=== PATIENT | male | born 2000 | race Caucasian/White ===

== ENCOUNTER 2021-10-09 13:29 | Emergency (ER) | payer OTHER, BC, SELFPAY ==
[2021-10-09 13:30] VITALS: BP 144/83; PULSE 104; RESP 16; TEMP 37; O2SAT 99; BMI 26.6
--- NOTE | 2021-10-09 14:28 | RAD_ITS ---
STUDY: X-RAY - RIGHT HAND REASON FOR EXAM: Male, 21 years old. Injury to the third digit. TECHNIQUE: 3 view(s) of the hand. COMPARISON: None. FINDINGS: Normal radiocarpal articulation. Normal distal radioulnar joint. Normal visualized carpal bones. Normal carpal articulations Normal carpometacarpal articulation of the thumb. Normal second through fifth carpometacarpal joints. Normal metacarpi. Normal metacarpophalangeal joint of the thumb. Normal interphalangeal joint of the thumb. Normal proximal and distal phalanges of the thumb. Normal metacarpophalangeal joints of the second through fifth fingers. Normal proximal and distal interphalangeal joints of the second through fifth fingers. Normal phalanges of the second through fifth fingers. The soft tissue structures are unremarkable. RAD/Hand Min 3 Views IMPRESSION: Normal x-ray examination of the hand. Electronically Signed: Serafin Reese MD at 15:00 EDT ,
--- NOTE | 2021-10-09 15:21 | EX.ED.UPPERE ---
HPI History of Present Illness HPI Narrative: Patient presents with injury to his right hand that occurred today. Patient got hit caught in the sliding door of his work van. Patient describes the pain is stiffness. Patient states pain is worse with movement. Patient denies any paresthesias or weakness. Patient states his last tetanus was up-to-date. Patient denies any other injuries. Chief Complaint: Upper Extremity Injury Informant: patient Occured/Mechanism Mechanism/Context: Yes crush Onset/Context/Timing Onset: Today Context: Sudden Onset Timing: Continuous Quality of Pain: - (Stiffness) Location: Right third and fourth fingers Worsened by: Movement Relieved by: Nothing Associated Symptoms Associated Symptoms: Negative for Parasthesia, Weakness and Loss of Funtion Narrative Tetanus Immunization: <5 years PFSH PFSH Medical History Asthma Home Medications cetirizine [Zyrtec] 10 mg PO DAILY 10/09/21 [History Last Taken Unknown] montelukast [Singulair] 10 mg PO DAILY 10/09/21 [History Last Taken Unknown] Allergy/AdvReac Type Severity Reaction Status Date / Time latex Allergy Rash Verified 10/09/21 13:30 Surgical History no surgical history no surgical history Social History Smoking Status: Never smoker ROS ROS ED Constitutional Constitutional ED: Denies chills or fever(s) Eyes Eyes: Denies blurry vision or change in vision ENT ENT ED: Denies rhinorrhea or sore throat Cardiovascular Cardiovascular: Denies chest pain or palpitations Respiratory/Chest Respiratory/Chest: Denies cough or dyspnea Gastrointestinal Gastrointestinal: Denies nausea or vomiting Genitourinary Genitourinary ED: Denies dysuria or hematuria Musculoskeletal Musculoskeletal: Denies back pain or neck pain Integumentary Denies abscess or rash Neurologic Neurologic: Denies headache(s) or weakness Allergic/Immunologic Allergic/Immunologic ED: Denies mouth swelling or urticaria EXAM Physical Exam Const Vital Signs: 10/09/21 13:30 Temperature 98.6 F Temperature Source Temporal Pulse Rate 104 H Respiratory Rate 16 Blood Pressure 144/83 H Blood Pressure Mean 103 Pulse Ox 99 Oxygen Delivery Method Room Air Positive well nourished and well developed General Appearance ED: well developed and NAD HEENT Reports moist mucous membranes Neck full ROM and supple Extremity Extremity Narrative: There is tenderness mild mild edema and ecchymosis over the distal phalanges of the right third and fourth fingers. There is no obvious deformity. There is good range of motion. There is a superficial abrasion over the dorsal aspect of the distal phalanx of the right third finger. There is a superficial 1.5 cm laceration over the palmar aspect of the distal phalanx of the fourth finger near the DIP joint. There is no active bleeding. There is minimal gapping of the wound margins. There are no foreign bodies noted. Sensation was intact to light touch in all digits. Capillary refill was less than 2 seconds in all digits. Neuro oriented x3, CN's II-XII intact bilaterally, moves all extremities, no focal motor deficits and no sensory deficits noted Sensorium / Orientation: alert Motor Exam: strength 5/5 throughout Psych mental status grossly normal MDM MDM MDM Narrative Medical decision making narrative: X-rays of the right hand were obtained. There are 3 views. On my interpretation, there is no acute fracture or dislocation. There is no soft tissue swelling. There are no foreign bodies noted. Radiologist also interpreted the x-rays and agrees. The right third and fourth fingers were cleaned. The laceration on the volar aspect of the fourth finger was closed with Steri-Strips. Patient tolerated the procedure well. The third finger was placed in aluminum foam splint. Patient was instructed to [facility]-up with [facility] or his primary care physician in 5 to 7 days. Patient understood and was agreeable with the plan. All questions were answered. Radiography Diagnostic Testing: Clinical Impression(s) from Imaging Studies Hand X-Ray 10/09/21 14:28 IMPRESSION: Normal x-ray examination of the hand. Electronically Signed: Serafin Reese MD at 15:00 EDT , Procedures Lacerations Right ring finger: Length: 1.5 cm Depth: Skin Shape: Linear Prep: Sterile Conditions and Shure-Clens Comment: Steri-Strips were applied. Discharge Plan Triage Chief Complaint: Upper Extremity Injury ED Provider: Clinton Castellon Dx/Rx/DC Orders Clinical Impression: Other sprain of right middle finger, initial encounter, Laceration of right ring finger Instructions: ED Laceration, Hand: All Closures, ED Finger Sprain Prescriptions: No Action cetirizine [Zyrtec] 10 mg Tablet 10 mg PO DAILY RF: 0 montelukast [Singulair] 10 mg Tablet 10 mg PO DAILY RF: 0 Primary Care Provider: Manuel Pink Referrals: Manuel Pink MD [Primary Care Provider] - 5-7 Days [facility] [NON-STAFF] - 5-7 Days Disposition Disposition: Home, Self Care
[2021-10-09 15:41] VITALS: RESP 18
== END 2021-10-09 15:43 | disposition home or self-care (01) ==
PROVIDERS: Emergency Provider Emergency Medicine; PCP Family Medicine; Visit Provider Emergency Medicine
DX: S61.214A Laceration without foreign body of right ring finger without damage to nail, initial encounter (principal); S63.612A Unspecified sprain of right middle finger, initial encounter; W23.0XXA Caught, crushed, jammed, or pinched between moving objects, initial encounter; Y92.818 Other transport vehicle as the place of occurrence of the external cause; J45.909 Unspecified asthma, uncomplicated
CPT/HCPCS: 73130; 99283

== ENCOUNTER 2022-01-21 07:30 | Outpatient (RCR) | payer OTHER, BC, SELFPAY ==
--- NOTE | 2021-12-10 08:15 | HP.OTEVAL_ITS ---
Patient's Visit Information ROMEO BOJORQUEZ is a 21 year old M, referred to Occupational Therapy by IKE Allen, with a diagnosis of right MF sprain. Date of Evaluation: 12/10/21 Occupational Therapist: Mary Kaiser, OTR/Hemant, CHT - Subjective This 21 year old male was seen for OT eval with dx of right MF sprain- pt states he closed his van door on his finger ( it latched shut) pt went to ER as it was bleeding- pt states he was placed in a splint to keep the tip of his finger straight- DOI was October 09. Pt states he removed the splint November 25- -pt states he is doing good with his finger and not sure he needs much therapy or has time with his busy schedule. 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 Due to the DIP flexed position therapists advised to sleep in the splint he was [facility]- pt demo understanding and use and agree to POC. Rehabilitation Potential: Good - Anticipated Interventions A/AAROM/PROM, Orthoses, Home Program - Visit Plan Frequency: Every Other Week Duration: 2 Months TEXT: Thank you for the opportunity to evaluate your patient. For Medicare and Medicare HMO plans, please review the plan of care and approve it. It will need to be FAXED BACK to us at [phone] for Medicare purposes. Please let me know if there are questions or concerns regarding this plan of care. Physician Signature: Date:
--- NOTE | 2022-01-21 07:40 | OTREVAL_ITS ---
IKE Allen, It has been my pleasure to treat ROMEO BOJORQUEZ over the last 3 visits for right MF sprain. Please see the progress note below for an update on the occupational therapy plan of care! Subjective: pt arrives with oval 8 orthosis on- denies pain. 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 pt demo with a +10* on right MF PIP this is eq. to left hand. pt will continue to use oval 8 splint to limit aggressive pip ext- for next few weeks- will wean out of it as able-. can go without night splint- positioning Pip in N Plan Plan: pt will cont with HEP of weaning out of orthosis as able-. return to normal activity. if PIP hyper ext increases return to dr. otherwise pt doing great Goals - Goals Patient Goals: Improve Fine Motor Skills Goal:: pt will demo a reduction of MF PIP hyper-extension indicating improvement in the tendon pull of right MF by d.c Goal:: pt will demo a increase in DIP ext lag by 10* to increase ease of pts ADLs and IADls by d.c Anticipated Interventions Anticipated Interventions: A/AAROM/PROM, Orthoses, Home Program Please do not hesitate to contact me at [phone] by phone or if you have questions or concerns regarding this new plan of care! Sincerely, Mary Kaiser, OTR/L, CHT
--- NOTE | 2022-04-06 16:59 | HP.OTDCSUM_ITS ---
It has been my pleasure to treat ROMEO BOJORQUEZ under orders from IKE Allen, for the diagnosis of right MF sprain for a total of 3 visit(s). Please see the following information for a summary of their discharge status. 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 pt demo with a +10* on right MF PIP this is eq. to left hand. pt will continue to use oval 8 splint to limit aggressive pip ext- for next few weeks- will wean out of it as able-. can go without night splint- positioning Pip in N Patient Goals: Improve Fine Motor Skills Goal:: pt will demo a reduction of MF PIP hyper-extension indicating improvement in the tendon pull of right MF by d.c Goal:: pt will demo a increase in DIP ext lag by 10* to increase ease of pts ADLs and IADls by d.c Plan: pt will cont with HEP of weaning out of orthosis as able-. return to normal activity. if PIP hyper ext increases return to dr. otherwise pt doing great If there are questions or concerns regarding this patient's occupational therapy , please fell free to call me at [phone]. Thank you for the referral of this patient. Sincerely, Mary Kaiser, OTR/L, CHT
== END 2022-01-21 19:00 | disposition home or self-care (01) ==
LOC: OT 07:30
PROVIDERS: PCP Family Medicine; Referring Provider Physician Assistant; Visit Provider Physician Assistant
DX: S63.692D Other sprain of right middle finger, subsequent encounter (principal); X58.XXXD Exposure to other specified factors, subsequent encounter
CPT/HCPCS: 97166; 97530